=== PATIENT | female | born 1925 | race Caucasian/White ===

== ENCOUNTER 2017-10-23 14:35 | Emergency (ER) | payer OTHER ==
[~2017-10-23] VITALS: Ht 152.4 cm; Wt 55.8 kg
[~2017-10-23 14:35] MED LIST: LEVAQUIN500 MG PO; NABUMETONE750 MG; RESTORIL15 M1
== END 2017-10-23 15:46 | disposition home or self-care (01) ==
LOC: ER 14:35
DX: Z48.02 Encounter for removal of sutures (principal)